=== PATIENT | female | born 1970 | race Caucasian/White ===

== ENCOUNTER 2020-09-09 13:19 | Emergency (ER) | payer OTHER ==
[2020-09-09] MEDS ORDERED: IBUPROFEN 600 MG TABLET PO ONE (13:27)
[2020-09-09] MEDS ORDERED: ACETAMINOPHEN 325 MG TABLET PO ONE (13:27)
[2020-09-09] MEDS ORDERED: DIPH/PERTUSS(ACELL)/TETANUS VAC/PF 0.5 ML SYR (>=10YO) IM ONE (13:28)
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
[2020-09-09 16:58] VITALS: BP 118/62
== END 2020-09-09 16:11 | disposition home or self-care (01) ==
LOC: EDSEX → ER 13:19
DX: S62.524A Nondisplaced fracture of distal phalanx of right thumb, initial encounter for closed fracture (principal); S39.012A Strain of muscle, fascia and tendon of lower back, initial encounter; S80.211A Abrasion, right knee, initial encounter; S80.12XA Contusion of left lower leg, initial encounter; V49.40XA Driver injured in collision with unspecified motor vehicles in traffic accident, initial encounter
CPT/HCPCS: 90715; 99284